=== PATIENT | male | born 1970 | race Caucasian/White ===

== ENCOUNTER 2018-02-04 09:06 | Emergency (ER) | payer MEDICAID ==
[~2018-02-04] VITALS: Ht 188 cm; Wt 120.2 kg
[2018-02-04 09:16] VITALS: BP 150/86
[2018-02-04] MEDS ORDERED: KETOROLAC 60 MG/2 ML VIAL IM ONE (09:35)
[2018-02-04 09:56] VITALS: BP 150/86
== END 2018-02-04 09:56 | disposition home or self-care (01) ==
LOC: MED 09:06
DX: L03.115 Cellulitis of right lower limb (principal); F17.210 Nicotine dependence, cigarettes, uncomplicated
CPT/HCPCS: 96372; 99283; J1885

== ENCOUNTER 2019-09-22 09:38 | Emergency (ER) | payer MEDICAID ==
[~2019-09-22] VITALS: Ht 190.5 cm; Wt 113.4 kg
[2019-09-22 09:56] VITALS: BP 160/95
--- NOTE | 2019-09-22 10:08 | NUR ---
49 YO MALE CO LEFT KNE PAIN. DENIES ANY INJURY OR TRAUMA. PT STATES THAT HIS KNEE ONLY HURTS WHEN HE NEEDS TO BEND IT. PT IS AMBULATORY. THERE IS SLIGHT SWELLING IN THE LEFT KNEE. PT DESCRIBES THE PAIN ACHING AND IS 8/10 WHEN HE BENDS IT. PAST MED HX OF DM AND HTN. PT IS TAKING MEDS FOR DM BUT NOT FOR HTN.
--- NOTE | 2019-09-22 10:25 | NUR ---
TRANSFERED CARE TO BELLA WILKINS
--- NOTE | 2019-09-22 10:26 | NUR ---
PT AMBULATED TO BED 03.
--- NOTE | 2019-09-22 10:59 | NUR ---
PT RESTING IN BED, SIDE RAIL X1
[2019-09-22 11:43] VITALS: BP 148/78
--- NOTE | 2019-09-22 11:43 | NUR ---
Patient discharged with v/s stable. Written and verbal after care instructions given and explained. Patient verbalized understanding. Ambulatory with steady gait. All questions addressed prior to discharge. Advised to follow up with PMD.
== END 2019-09-22 11:43 | disposition home or self-care (01) ==
LOC: MED 09:38
DX: M17.12 Unilateral primary osteoarthritis, left knee (principal); E11.9 Type 2 diabetes mellitus without complications; I10 Essential (primary) hypertension; N40.0 Benign prostatic hyperplasia without lower urinary tract symptoms; F17.210 Nicotine dependence, cigarettes, uncomplicated; Z71.9 Counseling, unspecified; Z96.643 Presence of artificial hip joint, bilateral
CPT/HCPCS: 73562; 99283; Q0092